=== PATIENT | female | born 1990 | race Asian ===

== ENCOUNTER 2020-10-31 15:52 | Emergency (ER) | payer OTHER ==
[~2020-10-31] VITALS: Ht 160 cm; Wt 52.3 kg
[2020-10-31] MEDS ORDERED: ACETAMINOPHEN 325 MG TABLET PO ONE (17:15)
[2020-10-31] MEDS ORDERED: IBUPROFEN 400 MG TABLET PO ONE (19:30)
[2020-10-31 20:34] VITALS: BP 127/88
== END 2020-10-31 20:46 | disposition home or self-care (01) ==
LOC: EMS 15:54
DX: S93.402A Sprain of unspecified ligament of left ankle, initial encounter (principal); F17.210 Nicotine dependence, cigarettes, uncomplicated; X50.1XXA Overexertion from prolonged static or awkward postures, initial encounter; Y93.89 Activity, other specified; Y92.89 Other specified places as the place of occurrence of the external cause; Y99.8 Other external cause status
CPT/HCPCS: 29515; 99284